=== PATIENT | male | born 1980 | race African-American/Black ===

== ENCOUNTER 2023-04-17 11:43 | Inpatient (IN) | payer OTHER ==
[2023-04-17 15:52] VITALS: BMI 38.0
[2023-04-17] MEDS ORDERED: ONDANSETRON 4 MG/2 ML VIAL IV PRN (16:32)
[2023-04-17] MEDS ORDERED: ENOXAPARIN 40 MG/0.4 ML SQ SCH (17:00)
[2023-04-17] MEDS ORDERED: VANCOMYCIN 2 GM in NA CHLORIDE 0.9% 500 ML IVPB ONE (17:00)
--- NOTE | 2023-04-17 17:07 | P.HP ---
Certification for Inpatient Patient admitted to: Inpatient With expected LOS: >2 Midnights Practitioner: I am a practitioner with admitting privileges, knowledge of patient current condition, hospital course, and medical plan of care. Services: Services provided to patient in accordance with Admission requirements found in Title 42 Section 412.3 of the Code of Federal Regulations Patient History Date of Service: 04/17/23 Reason for admission: nonhealing wounds, concern for infection History of Present Illness: 42yo M, PMH paraplegic (T5 down from [facility] 2011), PVD, Neurogenic bowel and bladder, HTN, NIDDM2, pressure ulcers, chronic pain Admitted from [facility] today for new non-healing wounds of left thigh and sacrum with concern for infection. Patient report some slight chills, no fever, no nausea/vomiting, no cough. He states he is paraplegic from T5 down and does not have sensation, but does have some vague pains every now and then. He states he has been on PO cipro and undergoing wound care with no improvement. Staff at [facility] reported concern due to smell and deeper tracking of wound. Patient states all other chronic medical conditions have been stable. He has neurogenic bladder for which he intermittently straight cath's himself. He states his baseline physically is able to transfer from bed to wheelchair with some mild-mod assistance. Allergies No Known Allergies Allergy (Unverified 04/17/23 16:57) Home Medications: Amlodipine Besylate 10 mg PO DAILY 04/17/23 Apixaban [Eliquis] 5 mg PO BID 04/17/23 Ascorbic Acid [Vitamin C] 500 mg PO DAILY 04/17/23 Atorvastatin Calcium [Lipitor] 80 mg PO BEDTIME 04/17/23 Baclofen 10 mg PO TID 04/17/23 Buspirone HCl 5 mg PO TID 04/17/23 Codeine/APAP [Tylenol #3*] 1 tab PO Q12HR 04/17/23 Docusate Sodium 200 mg PO DAILY 04/17/23 Fluticasone Propionate [Flovent Diskus] 50 mcg IN DAILY 04/17/23 Furosemide 40 mg PO DAILY 04/17/23 Gabapentin 400 mg PO BID 04/17/23 Lisinopril [Zestril] 5 mg PO DAILY 04/17/23 Magnesium Oxide 400 mg PO DAILY 04/17/23 Metformin HCl [Glucophage*] 1,000 mg PO BID 04/17/23 Metoprolol Tartrate 50 mg PO BID 04/17/23 Multivitamin [Multiple Vitamins] 1 tab PO DAILY 04/17/23 Polyethylene Glycol 3350 [Miralax] 17 gm PO BID PRN 04/17/23 Potassium Chloride 20 meq PO BID 04/17/23 cloNIDine HCL [Clonidine HCl] 0.1 mg PO Q8HR PRN 04/17/23 - Past Medical/Surgical History Diabetic: Yes -: hereditary and idiiopathic neuropathy -: injury of cervical spinal cord -: injury at T2-T6 level of thoracic spinal chord -: essential primary hypertension -: hypertensive heart disease without heart failure -: mood disorder -: neuromuscular dysfunction of bladder -: pressure ulcers -: muscle weakness -: depression -: anxiety -: hyperlipidemia Past Surgical History: Patient denies surgical history - Family History Family History: Reviewed- Non-Contributory - Social History Smoking Status: Never smoker Alcohol use: No CD- Drugs: No Caffeine use: Yes Place of Residence: [facility] Review of Systems 10-point ROS is otherwise unremarkable Physical Examination - Physical Exam General: Alert, In no apparent distress, Oriented x3 HEENT: Sclerae nonicteric Neck: Supple, No LAD Respiratory: Clear to auscultation bilaterally, Normal air movement Cardiovascular: Regular rate/rhythm, No murmurs, Edema Capillary refill: <2 Seconds Gastrointestinal: Soft and benign, Non-distended Integumentary: Pressure ulcer (unstageable - left heel, left thigh, and sacrum. +Foul odor, no active drainage noted) Neurological: Normal speech, Normal affect, Other (normal b/l upper extremity strength, 0/5 str in lower extremities, no sensation to tough from T5 down) Assessment and Plan - Advance Directives Does patient have a Living Will: No Does patient have a Durable POA for Healthcare: No Physician Review Additional Text: Problem list Unstageable pressure ulcer, nonhealing, concern for infection Paraplegia (T5 down) Hypertension Chronic pain Hyperlipidemia Neuromuscular dysfunction Anxiety NIDDM2 h/o DVT labs ordered admitted to med/surg ok to eat now, NPO After midnight for OR tomorrow Dr. Contreras consulted and aware ID consulted vanc/cefepime ordered pressure offloading / turning confirm meds from [facility], restart as appropriate hold metformin, glc accucheks q6h while NPO, sliding scale insulin last received eliquis this morning, discussed with Dr. Contreras - tentative plan for thursday vs thursday VTE: lovenox therapeutic Code: full Dispo: likely back to NH / SNF, ~4-5 days, pending I&D / improvement Time Spent Managing Pts Care (In Minutes): 60
[2023-04-17] MEDS ORDERED: POLYETHYL GLY 3350 17 GM/DOSE PO PRN (17:19)
[2023-04-17] MEDS ORDERED: cloNIDine HCL 0.1 MG TAB PO PRN (17:19)
[2023-04-17 18:28] LABS: Absolute Lymphocytes (CBC) 2.2 K/uL (0.7-4.9); Lymphocytes % 20.7 % (15.3-44.8); MCV 76.3 fL (80-100); MPV 7.6 fL (7.6-11.3); Platelets 348 thou/uL (152-406); Protime INR 1.46; RBC Red Blood Cell Count 4.98 M/uL (4.33-5.43)
[2023-04-17 18:39] LABS: Albumin 3.4 g/dL (3.4-5.0); Bilirubin Total 0.7 mg/dL (0.2-1.0); C-Reactive Protein 17.4 mg/L (<3.00); Magnesium 1.9 mg/dL (1.6-2.4); Phosphorus 3.7 mg/dL (2.5-4.9); Potassium 3.6 mEq/L (3.5-5.1); Protein, Total 7.6 g/dL (6.4-8.2)
[2023-04-17] MEDS: ATORVASTATIN 80 MG TAB PO SCH (20:12)
[2023-04-17] MEDS: GABAPENTIN 400 MG CAP PO SCH (20:12)
[2023-04-17] MEDS: BACLOFEN 10 MG TAB PO SCH (20:12)
[2023-04-17] MEDS: CODEINE 30MG/APAP 300MG TAB PO SCH (20:12)
[2023-04-17] MEDS: INSULIN REGULAR (HUMAN) 100 UNIT/ML SQ SCH (20:13)
[2023-04-17] MEDS: BUSPIRONE HCL 5 MG TABLET PO SCH (20:13)
[2023-04-17] MEDS: Enoxaparin 120 MG/0.8 ML SYR SQ SCH (20:13)
[2023-04-17] MEDS: CEFEPIME 2 GM in NA CHLORIDE 0.9% 100 ML IV SCH (20:13)
[2023-04-17] MEDS: METOPROLOL TAR 50 MG TAB PO SCH (20:16)
[2023-04-18 04:08] LABS: Absolute Lymphocytes (CBC) 3.1 K/uL (0.7-4.9); Hematocrit 36.6 % (39.6-49.0); Lymphocytes % 31.7 % (15.3-44.8); MCV 76.4 fL (80-100); MPV 7.4 fL (7.6-11.3); Platelets 343 thou/uL (152-406); RBC Red Blood Cell Count 4.79 M/uL (4.33-5.43)
[2023-04-18 04:27] LABS: Albumin 3.2 g/dL (3.4-5.0); Bilirubin Total 0.7 mg/dL (0.2-1.0); Potassium 3.7 mEq/L (3.5-5.1); Protein, Total 7.2 g/dL (6.4-8.2)
[2023-04-18] MEDS: VANCOMYCIN 2 GM in NA CHLORIDE 0.9% 500 ML IVPB SCH ×2 (05:27→16:34)
[2023-04-18] MEDS: INSULIN REGULAR (HUMAN) 100 UNIT/ML SQ SCH ×4 (07:30→21:00)
[2023-04-18] MEDS: Enoxaparin 120 MG/0.8 ML SYR SQ SCH ×2 (08:04→21:15)
[2023-04-18] MEDS: CODEINE 30MG/APAP 300MG TAB PO SCH ×2 (08:05→21:13)
[2023-04-18] MEDS: BUSPIRONE HCL 5 MG TABLET PO SCH ×3 (08:05→21:14)
[2023-04-18] MEDS: ASCORBIC ACID 500 MG TABLET PO SCH (08:05)
[2023-04-18] MEDS: MAGNESIUM OXIDE 400 MG TAB PO SCH (08:06)
[2023-04-18] MEDS: DOCUSATE NA 100 MG CAP PO SCH (08:06)
[2023-04-18] MEDS: GABAPENTIN 400 MG CAP PO SCH ×2 (08:07→21:14)
[2023-04-18] MEDS: BACLOFEN 10 MG TAB PO SCH ×3 (08:07→21:15)
[2023-04-18] MEDS: FUROSEMIDE 40 MG TABLET PO SCH (08:08)
[2023-04-18] MEDS: METOPROLOL TAR 50 MG TAB PO SCH ×2 (09:00→21:14)
[2023-04-18] MEDS ORDERED: lisinopriL 5 MG TAB PO SCH (09:00)
[2023-04-18] MEDS ORDERED: HOME MED 1 EA UNK (Ascorbic Acid [Vitamin C] 500 MG Capsule) PO SCH (09:00)
[2023-04-18] MEDS ORDERED: HOME MED 1 EA UNK (Magnesium Oxide [Magnesium Oxide] 400 MG Tablet) PO SCH (09:00)
[2023-04-18] MEDS ORDERED: POTASSIUM CL SA 10 MEQ TAB PO ONE (09:00)
[2023-04-18] MEDS: FLUTICASONE PROPIONATE 50 MCG IH SCH (09:00)
[2023-04-18] MEDS ORDERED: AMLODIPINE 10 MG TAB PO SCH (09:00)
--- NOTE | 2023-04-18 09:24 | P.PN ---
Date of Service: 04/18/23 Subjective: Doing okay Doesn't feel like anything is getting worse tentative plan for I&D tomorrow with Dr. Contreras afebrile ROS: 10 point ROS as noted above, otherwise negative Physical Exam: GEN: Alert, oriented, NAD HEENT: Normal conjunctiva, sclera anicteric CV: Regular rate and rhythm, no edema Pulm: Nonlabored respirations on room air, clear bilaterally ABD: soft, nontender, nondistended Integumentary: unstageable pressure ulcer - left heel, left thigh, and sacrum. +Foul odor, no active drainage noted Neuro: normal b/l upper extremity strength, 0/5 str in lower extremities, no sensation to touch from T5 down Problem List: Unstageable pressure ulcer, nonhealing, concern for infection Paraplegia (T5 down) Hypertension Chronic pain Hyperlipidemia Neuromuscular dysfunction Anxiety NIDDM2 h/o DVT Unstageable pressure ulcer, nonhealing, concern for infection Paraplegia (T5 down) h/o DVT General surgery - Dr. Contreras consulted continue local wound care: clean/irrigate wound to left posterior thigh with vashe, then wet to dry dressing applied daily CT left thigh (04/18): ordered for further eval. r/o osteomyelitis NPO at midnight for tentative I&D of left thigh wound may benefit from wound vac post operatively Blood cx (04/17): pending Wound cx (04/18): pending continue empiric cefepime / vancomycin (04/17-) afebrile, no leukocytosis, CRP mildly elevated ID consulted pressure offloading / frequent turning q2h PRN analgesics / antiemetics confirm meds from shelter, restart as appropriate last received eliquis 04/17. discussed with Dr. Contreras - tentative plan for surgery tomorrow (04/19) continue to hold eliquis. Bridge with lovenox for now venous u/s (04/18): ordered r/o DVT Reports taking lasix scheduled everyday NIDDM2 hold metformin, glc accucheks q6h, sliding scale insulin Hypertension Chronic pain Hyperlipidemia Neuromuscular dysfunction Anxiety confirm home meds, restart as appropriate VTE: Lovenox Code: Full Dispo: Home, ~2 days Pending surgery / OR recovery
[2023-04-18] MEDS: CEFEPIME 2 GM in NA CHLORIDE 0.9% 100 ML IV SCH ×2 (10:00→21:15)
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
[2023-04-18] MEDS: MEDIHONEY 44 ML TOPICAL TUBE TOP SCH (11:25)
--- NOTE | 2023-04-18 12:08 | RAD REPORT ---
EXAM DESCRIPTION: CT - Lower Ext Wo Con W/ Mpr - 04/18/2023 11:00 am CLINICAL HISTORY: infection of left posterior thigh COMPARISON: Extrem Venous W Compress Barrett dated 04/18/2023 TECHNIQUE: Thin axial CT images of the left lower extremity performed without IV contrast. Sagittal and coronal reconstructions were generated and reviewed. All CT scans are performed using dose optimization technique as appropriate and may include automated exposure control or mA/KV adjustment according to patient size. FINDINGS: Soft tissue defect along the posterior mid thigh with a sinus tract containing locules of gas extending into the deeper muscle compartments, predominantly involving the body of the biceps fem shivani, near the interface with the vastus lateralis. Locules of gas terminate adjacent to the posterio r femoral cortex, with an 5 mm from the cortex as seen on axial image 139. Edema and thickening exten ding along the more distal body of the biceps femoris. No appreciable fluid collections within limits of noncontrast evaluation. Predominantly ossified heterogeneous mass extending from the anteromedial proximal femoral shaft roberto ex and lesser trochanter, contiguous with a similar component centered on the anterior inferior iliac spine. Rarefied appearance of the femoral and iliac cortex at the origin of those osseous masses, wi thout discrete marrow continuity. Soft tissue component with interrupted osseous continuity anterior to the left thigh. Superficial varicosities along the anterior left thigh. The other visualized pelvic bones and soft tissue structures of the pelvis are unremarkable. IMPRESSION: The posterior mid thigh wound/ulcer, with a sinus tract containing locules of gas extend ing within 5 mm from the posterior femoral cortex. The tract appears to be predominantly within the s ubstance of the biceps femoris muscle. Edema and soft tissue thickening extending along the more dist al body of the biceps femoris. Large predominantly ossified heterogeneous mass extending from the proximal femoral shaft anteriorly and medially, contiguous with the component signed on the anterior inferior iliac spine. This is nons pecific, and favors heterotopic opacification, possibly in the setting of prior muscular tear versus anterior inferior iliac spine avulsion injury.
--- NOTE | 2023-04-18 13:16 | RAD REPORT ---
EXAM DESCRIPTION: US - Extrem Venous W Compress Barrett - 04/18/2023 11:40 am CLINICAL HISTORY: History of DVT. Evaluate for new thrombus COMPARISON: None. TECHNIQUE: Real-time sonographic evaluation of the bilateral lower extremity deep venous systems was performed. FINDINGS: Noncompressible right common femoral and proximal superficial femoral vein, with attenuate d caliber and hypoechoic content. Partially compressible mid right superficial femoral vein. Normal c ompressibility, flow augmentation, phasic flow and spontaneous flow is identified in the left lower e xtremity deep venous system,, and preserved flow within the distal right lower extremity deep venous system with absent phasic variation. No intraluminal filling defects seen. IMPRESSION: Attenuated caliber and noncompressibility of the right common femoral and proximal super ficial femoral veins. Partially compressible mid right superficial femoral vein. Findings favor chron ic thrombosis. No evidence of left lower extremity DVT.
[2023-04-18] MEDS: ATORVASTATIN 80 MG TAB PO SCH (21:14)
[2023-04-19 04:31] LABS: Absolute Lymphocytes (CBC) 2.5 K/uL (0.7-4.9); Hematocrit 36.9 % (39.6-49.0); Lymphocytes % 31.4 % (15.3-44.8); MCV 75.6 fL (80-100); Platelets 357 thou/uL (152-406); RBC Red Blood Cell Count 4.88 M/uL (4.33-5.43)
[2023-04-19 04:41] LABS: Albumin 3.1 g/dL (3.4-5.0); Bilirubin Total 0.8 mg/dL (0.2-1.0); C-Reactive Protein 21.4 mg/L (<3.00); Potassium 3.7 mEq/L (3.5-5.1); Protein, Total 7.1 g/dL (6.4-8.2)
[2023-04-19] MEDS: VANCOMYCIN 2 GM in NA CHLORIDE 0.9% 500 ML IVPB SCH ×3 (05:51→17:15)
[2023-04-19] MEDS: INSULIN REGULAR (HUMAN) 100 UNIT/ML SQ SCH ×4 (07:30→21:00)
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
[2023-04-19] MEDS ORDERED: NA CHLORIDE 0.9% 1,000 ML ONE (08:16)
[2023-04-19] MEDS: BUSPIRONE HCL 5 MG TABLET PO SCH ×3 (09:00→21:11)
[2023-04-19] MEDS: MEDIHONEY 44 ML TOPICAL TUBE TOP SCH (09:00)
[2023-04-19] MEDS: MAGNESIUM OXIDE 400 MG TAB PO SCH (09:00)
[2023-04-19] MEDS: FLUTICASONE PROPIONATE 50 MCG IH SCH (09:00)
[2023-04-19] MEDS: DOCUSATE NA 100 MG CAP PO SCH (09:00)
[2023-04-19] MEDS: ZINC SULFATE 220 MG CAP PO SCH (09:00)
[2023-04-19] MEDS: BACLOFEN 10 MG TAB PO SCH ×3 (09:00→21:09)
[2023-04-19] MEDS: CEFEPIME 2 GM in NA CHLORIDE 0.9% 100 ML IV SCH ×2 (09:07→21:05)
[2023-04-19] MEDS ORDERED: COLLAGENASE 30 GM OINTMENT TOP ONE (09:31)
[2023-04-19] MEDS ORDERED: MIDAZOLAM HCL 2 MG/2 ML INJ ONE ×2 (09:55→10:16)
[2023-04-19] MEDS ORDERED: FENTANYL CITR 100 MCG/2 ML ONE (09:55)
[2023-04-19] MEDS ORDERED: SILVER NITRATE 1 APPL TOP ONE (10:16)
--- NOTE | 2023-04-19 10:40 | P.OP ---
Date of Service: 04/19/23 Preop diagnosis: Infected wound left posterior thigh and a pressure ulcer on left heel Postop diagnosis: Same Procedure performed: Incision, drainage and debridement of left posterior thigh wound 6 x 6 x 10 cm to subcutaneous tissue with pulse irrigation, debridement of left heel wound to subcutaneous tissue 3 x 4 cm Surgeon: Dav Contreras MD Supervisor [employer]: Lynda MAR Estimated blood loss: Minimal Specimen: Pus, infected tissue Findings: As above Anesthesia: MAC Complications: None Drains: None Fluids and blood products: Nonapplicable Disposition: Recovery room Operative note: Patient brought to the OR and placed in the supine position. MAC anesthesia begun. Patient placed in the right lateral position. Patient prepped and draped in the usual sterile fashion. Curette was used to debride fibrin approximately a 3 x 4 cm area on the left heel to subcutaneous tissue. Patient did have some hypertrophic granulation tissue present. Silver nitrate was used. Sterile dressing applied. Then the left posterior thigh wound was examined. There was purulence present within the wound. Cultures were done. The edges of the wound were puckered in. Sharp dissection in a circular fashion was accomplished with Bovie approximately 1 to 2 cm skin edges were excised and sent to pathology. There was necrotic tissue present in the tunnel of the wound. These were debrided with curette and scissors. Pulse irrigation was utilized and all necrotic tissue was debrided again. Bleeding was controlled with cautery. All purulence and necrotic tissue was removed. Wet-to-dry with normal saline dressing change was applied. Patient was awakened and taken to recovery room in good general condition. CC:
[2023-04-19] MEDS: FUROSEMIDE 40 MG TABLET PO SCH (11:24)
[2023-04-19] MEDS: CODEINE 30MG/APAP 300MG TAB PO SCH ×2 (11:24→21:06)
[2023-04-19] MEDS: GABAPENTIN 400 MG CAP PO SCH ×2 (11:25→21:06)
[2023-04-19] MEDS: METOPROLOL TAR 50 MG TAB PO SCH ×2 (11:25→21:06)
[2023-04-19] MEDS: ASCORBIC ACID 500 MG TABLET PO SCH (11:25)
[2023-04-19] MEDS: ATORVASTATIN 80 MG TAB PO SCH (21:06)
[2023-04-19] MEDS: Enoxaparin 120 MG/0.8 ML SYR SQ SCH (21:07)
[2023-04-20] MEDS: VANCOMYCIN 2 GM in NA CHLORIDE 0.9% 500 ML IVPB SCH ×2 (05:17→17:00)
[2023-04-20 06:37] LABS: Absolute Lymphocytes (CBC) 2.1 K/uL (0.7-4.9); Hematocrit 35.5 % (39.6-49.0); Lymphocytes % 27.1 % (15.3-44.8); MCV 76.5 fL (80-100); MPV 7.5 fL (7.6-11.3); Platelets 320 thou/uL (152-406); RBC Red Blood Cell Count 4.64 M/uL (4.33-5.43)
[2023-04-20 06:56] LABS: Albumin 2.9 g/dL (3.4-5.0); Bilirubin Total 0.7 mg/dL (0.2-1.0); Potassium 3.4 mEq/L (3.5-5.1); Protein, Total 6.6 g/dL (6.4-8.2)
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
[2023-04-20] MEDS: INSULIN REGULAR (HUMAN) 100 UNIT/ML SQ SCH ×4 (07:30→21:00)
[2023-04-20] MEDS ORDERED: POTASSIUM CL SA 10 MEQ TAB PO ONE (09:00)
[2023-04-20] MEDS: ZINC SULFATE 220 MG CAP PO SCH (09:00)
[2023-04-20] MEDS: METOPROLOL TAR 50 MG TAB PO SCH ×2 (09:00→21:31)
[2023-04-20] MEDS: FLUTICASONE PROPIONATE 50 MCG IH SCH (09:00)
[2023-04-20] MEDS: Enoxaparin 120 MG/0.8 ML SYR SQ SCH ×2 (09:20→21:30)
[2023-04-20] MEDS: FUROSEMIDE 40 MG TABLET PO SCH (09:21)
[2023-04-20] MEDS: DOCUSATE NA 100 MG CAP PO SCH (09:21)
[2023-04-20] MEDS: MAGNESIUM OXIDE 400 MG TAB PO SCH (09:21)
[2023-04-20] MEDS: BUSPIRONE HCL 5 MG TABLET PO SCH ×3 (09:21→21:32)
[2023-04-20] MEDS: CODEINE 30MG/APAP 300MG TAB PO SCH ×2 (09:22→21:30)
[2023-04-20] MEDS: GABAPENTIN 400 MG CAP PO SCH ×2 (09:22→21:31)
[2023-04-20] MEDS: ASCORBIC ACID 500 MG TABLET PO SCH (09:22)
[2023-04-20] MEDS: BACLOFEN 10 MG TAB PO SCH ×3 (09:24→21:32)
[2023-04-20] MEDS: CEFEPIME 2 GM in NA CHLORIDE 0.9% 100 ML IV SCH ×2 (09:24→21:28)
[2023-04-20] MEDS: MEDIHONEY 44 ML TOPICAL TUBE TOP SCH (09:25)
--- NOTE | 2023-04-20 09:56 | P.CNS ---
Date of Consult: 04/20/23 Reason for Consult: nonhealing wounds, infected Chief Complaint: nonhealing wounds, concern for infection History of Present Illness: Patient is a 42 yo male with a past medical history of paraplegia, neurogenic bladder, hypertension, diabetes mellitus type II who [facility] for chronic non-healing wounds. He underwent debridement of left thigh and left heel pressure ulcers on 04/19. Wound cultures obtained. Infectious disease was consulted. Allergies No Known Allergies Allergy (Unverified 04/17/23 16:57) Home medications list reviewed: Yes Home Medications: Amlodipine Besylate 10 mg PO DAILY 04/17/23 Apixaban [Eliquis] 5 mg PO BID 04/17/23 Ascorbic Acid [Vitamin C] 500 mg PO DAILY 04/17/23 Atorvastatin Calcium [Lipitor] 80 mg PO BEDTIME 04/17/23 Baclofen 10 mg PO TID 04/17/23 Buspirone HCl 5 mg PO TID 04/17/23 Codeine/APAP [Tylenol #3*] 1 tab PO Q12HR 04/17/23 Docusate Sodium 200 mg PO DAILY 04/17/23 Fluticasone Propionate [Flovent Diskus] 50 mcg IN DAILY 04/17/23 Furosemide 40 mg PO DAILY 04/17/23 Gabapentin 400 mg PO BID 04/17/23 Lisinopril [Zestril] 5 mg PO DAILY 04/17/23 Magnesium Oxide 400 mg PO DAILY 04/17/23 Metformin HCl [Glucophage*] 1,000 mg PO BID 04/17/23 Metoprolol Tartrate 50 mg PO BID 04/17/23 Multivitamin [Multiple Vitamins] 1 tab PO DAILY 04/17/23 Polyethylene Glycol 3350 [Miralax] 17 gm PO BID PRN 04/17/23 Potassium Chloride 20 meq PO BID 04/17/23 cloNIDine HCL [Clonidine HCl] 0.1 mg PO Q8HR PRN 04/17/23 - Past Medical/Surgical History Diabetic: Yes -: hereditary and idiiopathic neuropathy -: injury of cervical spinal cord -: injury at T2-T6 level of thoracic spinal chord -: essential primary hypertension -: hypertensive heart disease without heart failure -: mood disorder -: neuromuscular dysfunction of bladder -: pressure ulcers -: muscle weakness -: depression -: anxiety -: hyperlipidemia - Social History Alcohol use: No CD- Drugs: No Caffeine use: Yes Place of Residence: [facility] Physical Examination Temp Pulse Resp BP Pulse Ox 98.3 F 66 16 116/71 96 04/20/23 08:00 04/20/23 09:21 04/20/23 09:22 04/20/23 09:21 04/20/23 09:22 General: Alert, In no apparent distress Respiratory: Clear to auscultation bilaterally, Normal air movement Cardiovascular: Regular rate/rhythm, Edema (trace BLE edema) Gastrointestinal: Normal bowel sounds, Soft and benign Integumentary: Pressure ulcer (left heel stage III; sacrum stage II; left thigh with wound vac) Laboratory Data (last 24 hrs) 04/20/23 04/20/23 06:27 06:27 WBC 7.70 Hgb 11.7 L Hct 35.5 L Plt Count 320 Sodium 138 Potassium 3.4 L BUN 17 Creatinine 0.57 L Glucose 122 H Total Bilirubin 0.7 AST 14 L ALT 25 Alkaline Phosphatase 98 Conclusions/Impression: Problem List Pressure Ulcer Unstageable of left thigh Paraplegic Diabetes Mellitus type II Hypertension Hyperlipidemia Hx of DVT Left Thigh Pressure Ulcer unstageable - s/p debridement 04/[address] Contreras - Wound cultures 04/19: gram positive cocci - Currently on cefepime and vancomycin Recommendations - Continue current antibiotics for now. Awaiting final culture/sensitivity results. Will adjust antibiotics as appropriate. - Wound care per Dr. Contreras - Pressure offloading measures Case discussed with Larry Flores
--- NOTE | 2023-04-20 10:51 | PN ---
Date of Progress Note: 04/20/2023 Subjective: The patient is awake, alert. No complaint. Objective: Vitals: Stable. Afebrile. Skin: Dressing is clean, dry, intact. Cultures are pending. Laboratory Data: Reviewed. Assessment: Status post debridement of left thigh and left heel wound. Recommendation: We will convert the left thigh wound to a wound VAC at this point. The patient [facility] be [facility] or whichever the Infectious Disease Service feels appropriat e for this patient. Antibiotics empiric right now until we get cultures back, then modify by the Inf ectious Disease team. Follow up in [facility] in a week upon discharge. Plan of care d iscussed with Dr. Zee. GARY/CRISTOFER Voice ID: [id number] Report ID: [id number]
[2023-04-20] MEDS: VANCOMYCIN 2.25 GM in NA CHLORIDE 0.9% 500 ML IVPB SCH (17:51)
[2023-04-20] MEDS: ATORVASTATIN 80 MG TAB PO SCH (21:31)
[2023-04-20] MEDS: JUVEN PACKET PO SCH (21:40)
[2023-04-21] MEDS: VANCOMYCIN 2.25 GM in NA CHLORIDE 0.9% 500 ML IVPB SCH ×2 (06:04→17:31)
[2023-04-21] MEDS: INSULIN REGULAR (HUMAN) 100 UNIT/ML SQ SCH ×4 (07:30→20:25)
[2023-04-21] MEDS: ZINC SULFATE 220 MG CAP PO SCH (09:00)
[2023-04-21] MEDS: MAGNESIUM OXIDE 400 MG TAB PO SCH (09:00)
[2023-04-21] MEDS: FLUTICASONE PROPIONATE 50 MCG IH SCH (09:00)
[2023-04-21] MEDS: GABAPENTIN 400 MG CAP PO SCH ×2 (09:18→20:24)
[2023-04-21] MEDS: FUROSEMIDE 40 MG TABLET PO SCH (09:18)
[2023-04-21] MEDS: DOCUSATE NA 100 MG CAP PO SCH (09:19)
[2023-04-21] MEDS: ASCORBIC ACID 500 MG TABLET PO SCH (09:19)
[2023-04-21] MEDS: METOPROLOL TAR 50 MG TAB PO SCH ×2 (09:20→20:24)
[2023-04-21] MEDS: CODEINE 30MG/APAP 300MG TAB PO SCH ×2 (09:20→20:24)
[2023-04-21] MEDS: Enoxaparin 120 MG/0.8 ML SYR SQ SCH ×2 (09:21→20:23)
[2023-04-21] MEDS: BUSPIRONE HCL 5 MG TABLET PO SCH ×3 (09:21→20:25)
[2023-04-21] MEDS: BACLOFEN 10 MG TAB PO SCH ×3 (09:21→20:24)
[2023-04-21] MEDS: CEFEPIME 2 GM in NA CHLORIDE 0.9% 100 ML IV SCH (09:23)
[2023-04-21] MEDS: MEDIHONEY 44 ML TOPICAL TUBE TOP SCH (09:23)
[2023-04-21] MEDS: JUVEN PACKET PO SCH ×2 (09:25→20:25)
--- NOTE | 2023-04-21 09:34 | P.PN ---
Date of Service: 04/21/23 Chief Complaint: nonhealing wounds, concern for infection Subjective: In no apparent distress. No acute events overnight. Denies any new or worsening complaints at this time. Physical Examination Temp Pulse Resp BP Pulse Ox 97.8 F 62 16 135/71 98 04/21/23 04:00 04/21/23 04:00 04/21/23 04:00 04/21/23 04:00 04/21/23 04:00 General: Alert, In no apparent distress Respiratory: Clear to auscultation bilaterally, Normal air movement Cardiovascular: Regular rate/rhythm. Trace BLE edema. Gastrointestinal: Normal bowel sounds, Soft and benign Integumentary: Pressure ulcer left heel stage III; sacrum stage II; left thigh with wound vac Laboratory Data - Reviewed Microbiology Data - Reviewed Imaging Data - Reviewed Medications List: reviewed Assessment and Plan Problem List Pressure Ulcer Unstageable of left thigh Paraplegic Diabetes Mellitus type II Hypertension Hyperlipidemia Hx of DVT Left Thigh Pressure Ulcer unstageable - s/p debridement 04/[address] Contreras - Wound cultures 04/18: providencia stuartii - Wound cultures 04/19: gram positive cocci - Currently on cefepime and vancomycin --> cefepime switched to meropenem 04/21 Recommendations Continue antibiotic therapy for a total of 14 days. - Wound culture 04/18 growing MDR Providencia susceptible to meropenem. Cefepime discontinued. Started on Meropenem. - Wound cultures from 04/19 debridement preliminary gram positive cocci; continue vancomycin for now. - Wound care per Dr. Contreras - Pressure offloading measures - Continue supportive care Case discussed with Larry Flores
[2023-04-21 11:13] LABS: Absolute Lymphocytes (CBC) 1.7 K/uL (0.7-4.9); Hematocrit 34.8 % (39.6-49.0); Lymphocytes % 25.5 % (15.3-44.8); MPV 7.4 fL (7.6-11.3); Platelets 318 thou/uL (152-406); RBC Red Blood Cell Count 4.57 M/uL (4.33-5.43)
--- NOTE | 2023-04-21 11:33 | PN ---
Date of Progress Note: 04/21/2023 Subjective: Patient is awake and alert. No complaint. Objective: Vital Signs: Stable. Afebrile. Skin: Dressing is clean, dry, and intact. Wound VAC is in place. Laboratory Data: White count is normal. Cultures are growing out Proteus, sensitive only to meropen em. Assessment: Status post debridement of left heel and left posterior thigh wound. Recommendations: Wound care as ordered. Patient will need IV antibiotics as well. Discharge planni ng in progress. Patient can go to a [facility] if they can provide IV antibiotics and wound VAC. If not, LTAC would also be a consideration. Plan of care discussed with Dr. Ruiz. /MODL Voice ID: [id number] Report ID: [id number]
[2023-04-21] MEDS ORDERED: POTASSIUM 25 MEQ EFFERV TAB PO ONE (12:19)
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
--- NOTE | 2023-04-21 16:26 | RAD REPORT ---
EXAM DESCRIPTION: RAD - Chest Single View - 04/21/2023 4:20 pm CLINICAL HISTORY: PICC Line Placement FINDINGS: Portable chest was obtained following placement of a right upper extremity PICC line. The catheter tip projects over the SVC.
[2023-04-21] MEDS ORDERED: Meropenem 1,000 MG in NA CHLORIDE 0.9% 100 ML IV SCH (17:00)
[2023-04-21 20:05] VITALS: TEMP 98.1
[2023-04-21] MEDS: ATORVASTATIN 80 MG TAB PO SCH (20:24)
[2023-04-21 20:33] VITALS: BP 119/56
[2023-04-21] MEDS ORDERED: Mupirocin NASAL 2 APPL/1 GM TUBE NAS SCH (21:00)
[2023-04-21 21:46] VITALS: O2SAT 95
== END 2023-04-21 21:45 | DRG 264 ==
LOC: 2ND 14:50
PROVIDERS: ADMIT Hospitalist; ATTEND Internal Medicine
PROC: 0JBM0ZZ Excision of Left Upper Leg Subcutaneous Tissue and Fascia, Open Approach (ICD-10-PCS; 2023-04-19)
PROC: 0JBR0ZZ Excision of Left Foot Subcutaneous Tissue and Fascia, Open Approach (ICD-10-PCS; principal; 2023-04-19 09:00)
PROC: 02HV33Z Insertion of Infusion Device into Superior Vena Cava, Percutaneous Approach (ICD-10-PCS; 2023-04-21)
DX: E11.52 Type 2 diabetes mellitus with diabetic peripheral angiopathy with gangrene (principal); G82.20 Paraplegia, unspecified; L97.429 Non-pressure chronic ulcer of left heel and midfoot with unspecified severity; E11.621 Type 2 diabetes mellitus with foot ulcer; L89.152 Pressure ulcer of sacral region, stage 2; L89.890 Pressure ulcer of other site, unstageable; E78.5 Hyperlipidemia, unspecified; I10 Essential (primary) hypertension; I82.511 Chronic embolism and thrombosis of right femoral vein; G89.29 Other chronic pain; G70.89 Other specified myoneural disorders; F41.9 Anxiety disorder, unspecified; Z79.01 Long term (current) use of anticoagulants; Z79.84 Long term (current) use of oral hypoglycemic drugs; Z79.899 Other long term (current) drug therapy
CPT/HCPCS: 36415; 71045; 73700; 76377; 80053; 80202; 82947; 83735; 84100; 85025; 85610; 86140; 87040; 87070; 87075; 87077; 87186; 87205; 88304; 93970; 94760; J0692; J1650; J2185; J2250; J3010; J3590; J7030; J7040

== ENCOUNTER 2024-07-07 15:12 | Emergency (ER) | payer OTHER ==
[2024-07-07] MEDS ORDERED: ONDANSETRON 4 MG (ODT) TAB ONE (15:43)
[2024-07-07] MEDS ORDERED: HYDROCODONE/APAP 10/325 TAB ONE (15:43)
[2024-07-07] MEDS ORDERED: KETOROLAC 30 MG/ML INJ ONE (15:43)
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
--- NOTE | 2024-07-07 16:20 | EDPHYS ---
Physician Documentation [facility] Name: Juan David Mena Age: 43 yrs Sex: Male : 1980 Arrival Date: 07/07/2024 Time: 15:12 Bed 5 Private MD: DAVEY Physician Hussain Unger HPI: 07/07 16:13 This 43 yrs old Black Male presents to ER via EMS with complaints of Shoulder Pain. jim 16:13 The patient or guardian complains of decreased range of motion, an injury, pain. left jim shoulder. Context: resulted from repetitive motion, lifting, The patient experiences decreased range of motion. Onset: The symptoms/episode began/occurred today. Modifying factors: the symptoms are alleviated by ice, remaining still, shoulder immobilizer, sling, The symptoms are aggravated by lifting weight, movement. Associated signs and symptoms: The patient has no apparent associated signs or symptoms. Severity of symptoms: At their worst the symptoms were moderate, in the emergency department the symptoms are unchanged. Treatment prior to arrival includes: no previous treatment. The patient has experienced similar episodes in the past, a few times. Historical: - Allergies: 15:30 No Known Allergies; cm10 - Home Meds: 16:08 atorvastatin 80 mg oral tablet 1 tab daily [Active]; oxybutynin chloride 2.5 mg Oral cm10 tablet daily [Active]; metformin 850 mg Oral tablet 1 tab 2 times per day [Active]; protein oral [Active]; cetirizine 10 mg oral tablet 1 tab daily [Active]; lisinopril 5 mg Oral tablet 1 tab daily [Active]; metoprolol tartrate 50 mg Oral tablet 2 times per day [Active]; amlodipine 10 mg tablet 1 tab [Active]; clonidine HCl 0.1 mg Oral tablet 1 tab every 8 hours [Active]; zinc sulfate 50 mg zinc (220 mg) Oral tablet 1 tab [Active]; gabapentin 400 mg oral capsule 1 cap 2 times per day [Active]; docusate sodium 100 mg Oral tablet 2 tabs daily [Active]; furosemide 40 mg Oral tablet 1 tab daily [Active]; baclofen 10 mg Oral tablet 3 times per day [Active]; Eliquis 5 mg oral tablet 1 tab 2 times per day [Active]; magnesium oxide 400 mg magnesium Oral capsule 1 cap daily [Active]; spironolactone 25 mg Oral tablet [Active]; potassium chloride 20 mEq Oral tablet, extended release 1 tab 2 times per day [Active]; acetaminophen-codeine 300-30 mg Oral tablet 1 tab every 12 hours [Active]; acetaminophen 325 mg Oral tablet [Active]; - PMHx: 15:30 Hypertensive disorder; Diabetes mellitus; cm10 16:08 Peripheral vascular disease; Neurogenic Bowel; Hyperlipidemia; Depressive disorder; cm10 Anxiety; Neuropathy; Paraplegia; - Immunization history:: Adult Immunizations up to date. - Infectious Disease History:: Denies. - Social history:: Smoking status: Reported history of juuling and/or vaping. - Family history:: not pertinent. ROS: 16:15 Constitutional: Negative for fever, chills, and weight loss, Eyes: Negative for injury, jim pain, redness, and discharge, ENT: Negative for injury, pain, and discharge, Neck: Negative for injury, pain, and swelling, Cardiovascular: Negative for chest pain, palpitations, and edema, Respiratory: Negative for shortness of breath, cough, wheezing, and pleuritic chest pain, Abdomen/GI: Negative for abdominal pain, nausea, vomiting, diarrhea, and constipation, Back: Negative for injury and pain, : Negative for injury, bleeding, discharge, and swelling, Skin: Negative for injury, rash, and discoloration, Neuro: Negative for headache, weakness, numbness, tingling, and seizure, Psych: Negative for depression, anxiety, suicide ideation, homicidal ideation, and hallucinations, Allergy/Immunology: Negative for hives, rash, and allergies, Endocrine: Negative for neck swelling, polydipsia, polyuria, polyphagia, and marked weight changes, Hematologic/Lymphatic: Negative for swollen nodes, abnormal bleeding, and unusual bruising, 16:15 MS/extremity: Positive for injury or acute deformity, decreased range of motion, pain, of the anterior aspect of left shoulder, Exam: 16:15 Constitutional: This is a well developed, well nourished patient who is awake, alert, jim and in no acute distress. Head/Face: Normocephalic, atraumatic. Eyes: Pupils equal round and reactive to light, extra-ocular motions intact. Lids and lashes normal. Conjunctiva and sclera are non-icteric and not injected. Cornea within normal limits. Periorbital areas with no swelling, redness, or edema. ENT: Nares patent. No nasal discharge, no septal abnormalities noted. Tympanic membranes are normal and external auditory canals are clear. Oropharynx with no redness, swelling, or masses, exudates, or evidence of obstruction, uvula midline. Mucous membranes moist. Neck: Trachea midline, no thyromegaly or masses palpated, and no cervical lymphadenopathy. Supple, full range of motion without nuchal rigidity, or vertebral point tenderness. No Meningismus. Chest/axilla: Normal chest wall appearance and motion. Nontender with no deformity. No lesions are appreciated. Cardiovascular: Regular rate and rhythm with a normal S1 and S2. No gallops, murmurs, or rubs. Normal PMI, no JVD. No pulse deficits. Respiratory: Lungs have equal breath sounds bilaterally, clear to auscultation and percussion. No rales, rhonchi or wheezes noted. No increased work of breathing, no retractions or nasal flaring. Abdomen/GI: Soft, non-tender, with normal bowel sounds. No distension or tympany. No guarding or rebound. No evidence of tenderness throughout. Back: No spinal tenderness. No costovertebral tenderness. Full range of motion. Male : Normal genitalia with no discharge or lesions. Skin: Warm, dry with normal turgor. Normal color with no rashes, no lesions, and no evidence of cellulitis. Neuro: Awake and alert, GCS 15, oriented to person, place, time, and situation. Cranial nerves II-XII grossly intact. Motor strength 5/5 in all extremities. Sensory grossly intact. Cerebellar exam normal. Normal gait. Psych: Awake, alert, with orientation to person, place and time. Behavior, mood, and affect are within normal limits. 16:15 Musculoskeletal/extremity: Extremities: grossly normal except: noted in the anterior aspect of left shoulder: decreased ROM, pain, tenderness, DVT Exam: No signs of deep vein thrombosis. no pain, no swelling, no tenderness, negative Homans' sign noted on exam, no appreciated bluish discoloration, no erythema, no increased warmth, Vital Signs: 15:30 BP 124 / 84; Pulse 76; Resp 14; Temp 98; Pulse Ox 97% on R/A; Weight 125.19 kg; Height cm10 5 ft. 10 in. ; Pain 6/10; 17:46 BP 114 / 81; Pulse 57; Resp 16; Pulse Ox 100% on R/A; cm10 15:30 Body Mass Index 39.60 (125.19 kg, 177.8 cm) cm10 15:30 Pain Scale: Adult cm10 MDM: 15:17 Medical Screening Exam initiated jim 16:16 Differential diagnosis: Anterior dislocation with fracture, Anterior dislocation jim without fracture, Posterior dislocation with fracture, Posterior dislocation without fracture, humeral head fracture, glenoid fracture, DJD, tendonitis. Data reviewed: vital signs, nurses notes, radiologic studies, plain films. Consideration of Admission/Observation Escalation of care including admission/observation considered. I considered the following discharge prescriptions or medication management in the emergency department Medications were administered in the Emergency Department. See MAR. Independent interpretation of the following test(s) in the Emergency Department X-Ray: My interpretation is LEFT SHOULDER. Test considered but Not performed: Labs: NO LABS. Historians other than the Patient: EMS: EMS WELL INFORMED. Care significantly affected by the following chronic conditions: Diabetes, Hypertension. 07/07 15:28 Order name: Shoulder Left (2 View) XRAY jim Administered Medications: 15:56 Drug: Ondansetron Oral Disintegrating Tablet Oral Disintegrating Tablet 4 mg PO once cm10 Route: PO; 16:36 Follow up: Response: No adverse reaction cm10 15:57 Drug: Ketorolac IM 60 mg IM once Route: IM; Site: left vastus lateralis; cm10 16:37 Follow up: Response: No adverse reaction cm10 15:57 Drug: [place] PO 10 mg-325 mg 1 tabs PO once Route: PO; cm10 16:37 Follow up: Response: No adverse reaction cm10 Disposition Summary: 07/07/24 16:20 Discharge Ordered Notes: Location: Home jim Problem: new jim Symptoms: have improved jim Condition: Stable jim Diagnosis - Unspecified symptoms and signs involving the musculoskeletal system jim - Injury of other muscles, fascia and tendons at shoulder and upper arm level jim - Injury of muscle(s) and tendon(s) of the rotator cuff of shoulder jim Followup: jim - With: Private Physician - When: 2 - 3 days - Reason: Recheck today's complaints, Re-evaluation by your physician Followup: jim - With: Umair Cardenas MD - When: 2 - 3 days - Reason: Recheck today's complaints, Re-evaluation by your physician Discharge Instructions: - Discharge Summary Sheet jim - Musculoskeletal Pain jim - How to Use a Shoulder Immobilizer jim - Shoulder Pain jim - Shoulder Pain, [id number] [facility] Forms: - Medication Reconciliation Form jim - Antibiotic Education jim - Prescription Opioid Use jim - Patient Portal Instructions jim - Leadership Thank You Letter jim - SBAR form bc6 Prescriptions: - Ibuprofen 600 mg Oral Tablet - take 1 tablet ORAL route every 6 hours As needed take with food; 30 tablet; [facility] Refills: 0, Product Selection Permitted - methocarbamol 750 mg Oral tablet - take 1 tablet ORAL route every 6 hours PRN; 28 tablet; Refills: 0, Product [facility] Selection Permitted - Tylenol-Codeine #3 300mg-30mg Oral tablet - take 2 tablets ORAL route every 6 hours As needed; 16 tablet; Refills: 0, [facility] Product Selection Permitted Signatures: Dispatcher [employer] Hussain Khan MD MD cha Martinez, Clarissa RN RN cm10 Corrections: (The following items were deleted from the chart) 15:56 15:28 Ice pack ordered. jim cm10 17:28 15:[address] [facility] cm10
[2024-07-07 18:23] VITALS: TEMP 98
[2024-07-07 18:25] VITALS: BP 114/81; O2SAT 100
--- NOTE | 2024-07-07 19:07 | RAD REPORT ---
EXAMINATION: XR LEFT SHOULDER CLINICAL INDICATION: Male, 43 years old. PAIN TECHNIQUE: Internal and external AP view radiograph of the left shoulder were obtained. COMPARISON: No prior exam. FINDINGS: Displaced distal clavicle fracture, with caudal offset of the distal fragment and acromion by approximately 11 mm. Normal glenohumeral joint alignment. No evidence of arthropathy or other focal bone lesion. Soft tissue swelling about the AC joint. IMPRESSION: Displaced distal clavicle fracture as above.
== END 2024-07-07 18:01 | disposition home or self-care (01) ==
LOC: ER 15:12
DX: S46.892A Other injury of other muscles, fascia and tendons at shoulder and upper arm level, left arm, initial encounter (principal); S46.092A Other injury of muscle(s) and tendon(s) of the rotator cuff of left shoulder, initial encounter
CPT/HCPCS: 73030; 96372; 99284; Q0162